=== PATIENT | male | born 1940 | race Caucasian/White ===

== ENCOUNTER → 2016-06-04 | Outpatient (CLI) | payer BC ==
[~2016-06-04] MED LIST: CYAN100020 PO; HYZ/50125 PO; LEVO112T2 PO
--- NOTE | 2016-06-04 15:14 | DIAGNOSTIC IMAGING REPORT ---
CHEST 2 VIEWS ROUTINE CLINICAL HISTORY: R09.89 Chest congestion COMPARISON STUDY: 06/06/2008 FINDINGS: The heart is normal in size. There is mild aortic tortuosity. There is suspected emphysema. There is no focal pulmonary consolidation. There are no pleural effusions. There is no failure.[ IMPRESSION: No active disease in the chest. Electronically signed by: Devon Wasserman M.D. 06/04/2016 3:12 PM Dictated Date/Time: 06/04/2016 3:11 PM
== END | disposition home or self-care (01) ==
LOC: C.RAD1850 14:55
PROVIDERS: ATTEND Internal Medicine Infectious Disease
DX: R09.89 Other specified symptoms and signs involving the circulatory and respiratory systems (principal)

== ENCOUNTER → 2016-06-17 | Outpatient (CLI) | payer BC ==
--- NOTE | 2016-06-17 12:55 | DIAGNOSTIC IMAGING REPORT ---
Venous Doppler right leg VENOUS DOPP LOWER EXT UNILAT CLINICAL HISTORY: R LOWER BEHIND KNEE, R/O DVT pain. Edema. TECHNIQUE: Venous Doppler COMPARISON STUDY: None FINDINGS: Normal study IMPRESSION: Normal study Electronically signed by: Bolivar Knutson M.D. 06/17/2016 12:54 PM Dictated Date/Time: 06/17/2016 12:53 PM
== END | disposition home or self-care (01) ==
LOC: C.ULTR 12:18
PROVIDERS: ATTEND Allergy & Immunology Allergy
DX: M79.661 Pain in right lower leg (principal)

== ENCOUNTER → 2016-06-17 | Outpatient (CLI) | payer BC ==
[2016-06-17 12:40] LABS: BASO % 0.5 %; BASO ABS # 0.03 K/uL (0-0.2); COMPLETE YES; EOS % 2.1 %; HEMATOCRIT 41.9 % (42-52); LYMPH % 20.4 %; LYMPH ABS # 1.29 K/uL (1.2-3.4); MEAN CELL VOLUME 91.9 fL (80-100); MEAN CORPUSCULAR HEMOGLOBIN 31.4 pg (25-34); MEAN CORPUSCULAR HGB CONC 34.1 g/dl (32-36); MEAN PLATELET VOLUME 10.3 fL (7.4-10.4); MONO % 7.4 %; NEUT % 69.6 %; PLATELET COUNT 180 K/uL (130-400); RED BLOOD COUNT 4.56 M/uL (4.7-6.1); WHITE BLOOD COUNT 6.33 K/uL (4.8-10.8)
[2016-06-17 14:36] LABS: ALB/GLOB RATIO 0.9 (0.9-2); ALKALINE PHOSPHATASE 71 U/L (45-117); ALT/SGPT 28 U/L (12-78); AST/SGOT 16 U/L (15-37); BLOOD UREA NITROGEN 18 mg/dl (7-18); CALCIUM 8.5 mg/dl (8.5-10.1); CARBON DIOXIDE 27 mmol/L (21-32); CHLORIDE 106 mmol/L (98-107); GLUCOSE 79 mg/dl (70-99); POTASSIUM 3.8 mmol/L (3.5-5.1); SODIUM 143 mmol/L (136-145)
== END | disposition home or self-care (01) ==
LOC: C.LAB1850 11:56
PROVIDERS: ATTEND Allergy & Immunology Allergy
DX: R53.83 Other fatigue (principal); M79.661 Pain in right lower leg

== ENCOUNTER → 2016-08-30 | Outpatient (CLI) | payer BC | END | disposition home or self-care (01) | LOC: C.RDSM 12:25 | PROVIDERS: ATTEND Physical Medicine & Rehabilitation Sports Medicine | DX: M25.512 Pain in left shoulder (principal) ==

== ENCOUNTER → 2017-07-21 | Outpatient (CLI) | payer BC ==
--- NOTE | 2017-07-21 14:18 | DIAGNOSTIC IMAGING REPORT ---
CHEST 2 VIEWS ROUTINE HISTORY: 76 years-old Male SHORTNESS OF BREATH acute shortness of breath COMPARISON: Chest radiograph 06/04/2016 TECHNIQUE: PA and lateral views of the chest FINDINGS: Cardiomediastinal and hilar silhouettes are within normal limits. Atherosclerosis of the aorta. Mild biapical pleural-parenchymal scarring appears unchanged. No pneumothorax, pleural effusion, focal airspace consolidation or overt pulmonary edema. Degenerative changes are seen within the shoulders and spine. IMPRESSION: No acute process. The above report was generated using voice recognition software. It may contain grammatical, syntax or spelling errors. Electronically signed by: Lorenzo Kenny M.D. 07/21/2017 2:17 PM Dictated Date/Time: 07/21/2017 2:16 PM
[2017-07-21 15:39] LABS: BASO % 0.5 %; BASO ABS # 0.03 K/uL (0-0.2); EOS % 2.7 %; EOS ABS # 0.16 K/uL (0-0.5); IG# 0.01 K/uL (0.00-0.02); LYMPH % 24.7 %; LYMPH ABS # 1.46 K/uL (1.2-3.4); MEAN CELL VOLUME 92.8 fL (80-100); MEAN CORPUSCULAR HEMOGLOBIN 31.7 pg (25-34); MEAN CORPUSCULAR HGB CONC 34.1 g/dl (32-36); MEAN PLATELET VOLUME 10.2 fL (7.4-10.4); MONO % 8.3 %; MONO ABS # 0.49 K/uL (0.11-0.59); NEUT % 63.6 %; NEUT ABS # 3.77 K/uL (1.4-6.5); PLATELET COUNT 199 K/uL (130-400); RED CELL DISTRIBUTION WIDTH CV 13.9 % (11.5-14.5); RED CELL DISTRIBUTION WIDTH SD 47.9 fL (36.4-46.3); WHITE BLOOD COUNT 5.92 K/uL (4.8-10.8)
[2017-07-21 16:10] LABS: ALBUMIN 3.5 gm/dl (3.4-5.0); ALT/SGPT 27 U/L (12-78); BLOOD UREA NITROGEN 17 mg/dl (7-18); CALCIUM 8.2 mg/dl (8.5-10.1); CARBON DIOXIDE 29 mmol/L (21-32); CREATININE 1.02 mg/dl (0.60-1.40); GLUCOSE 81 mg/dl (70-99); SODIUM 136 mmol/L (136-145)
[2017-07-21 16:21] LABS: ALKALINE PHOSPHATASE 86 U/L (45-117); AST/SGOT 20 U/L (15-37); TOTAL PROTEIN 7.7 gm/dl (6.4-8.2)
== END | disposition home or self-care (01) ==
LOC: C.RAD1850 13:55
PROVIDERS: ATTEND Physician Assistant Medical
DX: R06.02 Shortness of breath (principal); R53.83 Other fatigue

== ENCOUNTER → 2017-08-06 | Outpatient (CLI) | payer BC ==
--- NOTE | 2017-08-06 11:14 | DIAGNOSTIC IMAGING REPORT ---
CAROTID DOPPLER NECK ART CLINICAL HISTORY: 77 years-old Male presenting with I10 [id number]. TECHNIQUE: Real-time grayscale and color and spectral Doppler ultrasound imaging of the bilateral carotid arteries was performed. NASCET criteria was used in evaluating this study. COMPARISON: None. FINDINGS: Right: Common carotid: Atherosclerosis. Peak systolic velocity 68 cm/s. Internal carotid artery: Atherosclerosis of the proximal ICA. Peak systolic velocity 46 cm/s. Systolic ratio: 0.7. External carotid artery: Patent. Peak systolic velocity 55 cm/s. Left: Common carotid: Atherosclerosis at the carotid bulb. Peak systolic velocity 55 cm/s. Internal carotid artery: Atherosclerosis of the proximal ICA. Peak systolic velocity 56 cm/s. Systolic ratio: 1.0. External carotid artery: Atherosclerosis. Peak systolic velocity 45 cm/s. Bilateral antegrade flow within the vertebral arteries. Reference ranges: Stenosis measurements are compared to reference velocity parameters. Primary parameters: ICA peak systolic velocity (PSV) < 125 cm/s normal or indicating < 50% stenosis; ICA PSV 125-230 cm/s equivalent to 50-69% stenosis; ICA PSV > 230 cm/s equivalent to greater than or equal to 70% stenosis. Additional parameters: ICA PSV to common carotid artery PSV ratio < 2 normal or < 50% stenosis; 2-4 equates to 50-69% stenosis, > 4 equates to greater than or equal to 70% stenosis. Normal ICA end-diastolic velocity less than 40. Blood pressure Brachial: Right: 139/95 mmHg, Left: 125/86 mmHg. IMPRESSION: Atherosclerosis without hemodynamically significant stenosis seen within the carotid arteries. Electronically signed by: Irving Germain M.D. 08/06/2017 11:12 AM Dictated Date/Time: 08/06/2017 11:11 AM
== END | disposition home or self-care (01) ==
LOC: C.ULTR 10:29
PROVIDERS: ATTEND Physician Assistant Medical
DX: I10 Essential (primary) hypertension (principal); R42 Dizziness and giddiness

== ENCOUNTER → 2017-08-19 | Outpatient (CLI) | payer BC | END | disposition home or self-care (01) | LOC: C.LAB1850 12:57 | PROVIDERS: ATTEND Internal Medicine Pulmonary Disease | DX: R53.83 Other fatigue (principal); R42 Dizziness and giddiness ==

== ENCOUNTER 2022-03-20 05:57 | Inpatient (IN) ==
--- NOTE | 2022-03-15 10:23 | PAT Medication Instructions ---
Medication Instructions Date of Service March 15, 2022 Home Medications Medication Instructions Recorded losartan 50 mg tablet 50 mg PO QAM #30 tabs 01/18/22 multivitamin 1 tab PO QAM levothyroxine 125 mcg tablet 125 mcg PO QAM losartan 50 mg tablet 50 mg PO QAM DO NOT take the morning of surgery multivitamin 1 tab PO QAM losartan 50 mg tablet 50 mg PO QAM Take morning of surgery With a small sip of water, OTHERWISE NOTHING TO EAT OR DRINK AFTER MIDNIGHT: levothyroxine 125 mcg tablet 125 mcg PO QAM Other Notes If you have any questions please call us at [phone] or [phone] or [phone] or [phone]
--- NOTE | 2022-03-18 13:09 | Anesthesiology Consultation ---
Date of Service March 18, 2022 Assessment & Plan (1) Encounter for pre-operative examination: - PCP office visit 02/11/22 [place]: "...81-year-old male with multiple medical problems including hypertension, mild ALFONSO, hypothyroidism, depression, BPH, previous history of non-Hodgkin's lymphoma, psoriasis with arthritis and dyspepsia/bloating. His GI workup was relatively unremarkable although his CT of the abdomen and pelvis did show an enlarging aortic aneurysm which will be fixed by vascular surgery. He is recovered from Haemophilus influenzae pneumonia. His appetite has improved and he is gaining weight again..." Chart Review Chart Review: Acceptable Risk for Surgery and Patient seen in Pre Admission Testing Teaching & Discussion Pre-Anesthesia Teaching/Discussion Notes: Instructed NPO after midnight before surgery, except medications with 15 cc of water. Medication instructions provided according to the PAT guidelines. History Surgery Operation Date: 03/20/22 10:40 Proposed Procedures p Percutaneous Endovascular Abdominal Aortic Aneurysm Repair - Juwan Robertson MD Height/Weight Height: 6 ft Weight: 69.853 kg Allergies Allergy/AdvReac Type Severity Reaction Status Date / Time Morpholine Analogues Allergy Severe Difficulty Verified 03/13/22 08:02 Breathing ciprofloxacin [From Cipro] AdvReac Intermediate Vomiting Verified 03/13/22 08:02 bee sting Allergy Severe Anaphylaxis Uncoded 03/13/22 08:02 Medications Home Medications Medication Instructions Recorded Confirmed Last Taken multivitamin 1 tab PO QAM 03/26/21 03/13/22 11/10/21 levothyroxine 125 mcg tablet 125 mcg PO QAM 11/08/21 03/13/22 11/12/21 09:00 losartan 50 mg tablet 50 mg PO QAM #30 tabs 01/18/22 03/13/22 Unknown calcipotriene 0.005 % topical cream applic topical 03/18/22 Unknown clobetasol 0.05 % topical cream topical 03/18/22 Unknown clobetasol 0.05 % topical cream topical 03/18/22 Unknown Additional Notes: Pt advised to stop all gels, lotions and creams 24 hours prior to surgery. He verbalized understanding and agreement, denied questions or concerns. Past Medical History Medical History AAA (abdominal aortic aneurysm) 5.2 x 5.1 cm infrarenal AAA BPH (benign prostatic hyperplasia) Constipation Esophageal reflux History of anesthesia reaction inability to void s/p shoulder surgery " i almost because my bladder almost burst" treated post op in the emergency room with juarez catheter for 24 hours. History of diverticulitis History of non-Hodgkin's lymphoma dx'd 2003 - chemotherapy History of sleep apnea reports resolved with weight loss HTN (hypertension) Hypothyroidism Pneumonia per PCP (per patient, CXR was negative) 12/2021 treated with abx. no current problems. Quadriceps tendon rupture hx bilateral Weight loss, unintentional recent EGD and Colonoscopy -- continued monitoring his weightloss and following with PCP Patient denies h/o stroke, seizures, heart attack, heart failure, DM, blood clots or blood transfusions. Exercise / Class Metabolic Activity II 4-5 Yardwork/Stairs/Walk up hill (denies CP or SOB with 1 FOS) Past Family History Family History Other Cancer No family history of adverse response to anesthesia Past Surgical History Surgical History (Updated 03/18/22 @ 13:12 by Chetna Flanagan PA-C) H/O colonoscopy History of arthroscopy of left shoulder post-op urinary retention requiring emergent catheterization History of arthroscopy of right shoulder History of bowel resection r/t diverticulosis History of esophagogastroduodenoscopy (EGD) History of eye surgery right eye removal History of knee surgery Repair of right and left quadricep repair History of partial colectomy Past Anesthesia History No Family Hx of Anesthesia Complications and Other (post-op urinary retention requiring emergent catheterization) History of PONV No Hx of PONV and No Hx of Motion Sickness Social History Smoking Status: Current every day smoker (advised) tobacco type: cigars Do You Dip or Chew Tobacco: No Hx Alcohol Use: Yes Alcohol type: beer alcohol intake frequency: a few times a week Hx Substance Use: No substance use type: does not use Review of Systems Patient denies chest pain, shortness of breath, dyspnea on exertion, fever, chills, cough, wheezing, or palpitations. Physical Exam Vital Signs Vitals BP 152/95 manual P 70 TEMP 97.7 SP02 97% on RA RESP 18 Physical Full cervical extension range of motion without pain TMD 3.5 finger breadths Mallampati Score 3 Dentition: full upper denture, partial lower; denies chipped or loose teeth Lungs: normal respiratory effort. Clear throughout to auscultation, no adventitious breath sounds Cardiac: regular rate and rhythm, no murmurs noted Carotid arteries: negative bruit bilat Lab Results Anesthesia Preop Results Results Anesthesia Widget: WBC 5.22 K/ul (4.8-10.8) 03/18/22 Hgb 13.6 g/dl (14.0-18.0) L 03/18/22 Hct 39.3 % (40.1-51.0) L 03/18/22 Plt 227 K/uL (130-400) 03/18/22 Na 140 mmol/L (136-145) 03/18/22 K 4.1 mmol/L (3.5-5.1) 03/18/22 Cl 106 mmol/L (98-107) 03/18/22 CO2 31 mmol/L (21-32) 03/18/22 BUN 18 mg/dl (6-23) 03/18/22 Creat 0.95 mg/dl (0.6-1.4) 03/18/22 Glucose Level 83 mg/dl (70-99(Fasting)) 03/18/22 PT 10.8 Seconds (9.0-12.0) 03/18/22 PTT 27.1 Seconds (21.0-31.0) 03/18/22 INR 1.0 (0.9-1.1) 03/18/22 Blood Type A Negative 03/18/22 Antibody Screen NEGATIVE 03/18/22 Testing Electrocardiogram Date: 03/18/22 Sinus bradycardia, rate 59 bpm Left anterior fascicular block Chest X-Ray Date: 03/18/22 No focal lung consolidations to suggest a pneumonia. No evidence for pulmonary e tabitha. There is a punctate calcified granuloma within the right upper lobe, unchanged. The heart is normal in size. Mildly tortuous thoracic aorta again noted. IMPRESSION: No significant change compared to the prior study. No acute process. Other Testing Chest, abdomen pelvis CTA 02/25/22 Cardiomegaly. There is no pericardial effusion. Tortuosity of the descending thoracic aorta. Fusiform aneurysmal dilation of the infrarenal abdominal aorta measures up to 5.2 x 5.1 cm, unchanged from the December 18, 2021 exam. Aneurysm extends for a craniocaudal length of approximately 9.3 cm. 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 Fusiform dilation is also noted involving the bilateral external iliac arteries. There is approximately 50% luminal narrowing involving the mid aspect of the celiac trunk on image 119 series 3 with poststenotic dilation measuring up to 1.4 cm. The superior mesenteric artery is patent. There is diminished flow throughout the majority of the inferior mesenteric artery on the arterial phase with normalized flow on the portal kori ous imaging. The bilateral renal arteries are patent. There is an accessory right renal artery feeding the inferior pole which demonstrates at least mild stenosis at its origin. Clear lung bases. No pneumatosis or pneumoperitoneum. The spleen, moderately trophic pancreas, gallbladder and adrenal glands appear unremarkable. The liver is within normal limits. There are a few subcentimeter hepatic cysts noted. There is patency of the hepatic and portal veins. There are a few cysts of the left kidney which measure up to 2.7 cm. 1.3 cm right renal cyst. No urolith or obstructive uropathy. Marked prostamegaly. Partial distention of the urinary bladder with circumferential wall thickening and perivesicular stranding. There is no lymphadenopathy. Mild nonspecific distal esophageal wall thickening. There is no bowel obstruction or bowel wall thickening. Colonic diverticulosis without acute diverticulitis. Moderate colonic fecal retention. Normal appendix. There is no ascites or mesenteric inflammation. Unremarkable soft tissues. Degenerative changes of the spine, pelvis and hips. L3 vertebral body hemangioma. IMPRESSION: 1. 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 2. No dissection or evidence of aneurysm rupture. 3. Diffusely diminished flow within the inferior mesenteric artery on the arterial phase with normalization of flow on the portal venous imaging. 4. No acute intra-abdominal or intrapelvic abnormality. 5. Additional findings as above. COVID-19 Risk Screen Screening Information COVID-19 Screen Date: 03/18/22 Exposure 21 Days Family/Household +COVID Last 21 Days: No Exposure 10 Days Any COVID Exposure Last 10 Days: No Symptoms Last 10 Days Experienced COVID Sx Last 10 Days: No + COVID 0-90 Days COVID + in Last 0-90 Days: No
[2022-03-20] MEDS ORDERED: ceFAZolin 2000MG 2,000 MG/15 ML SYR IV SCH (06:00)
[2022-03-20] MEDS ORDERED: LACTATED RINGER'S 1,000 ML IV SCH (06:00)
[2022-03-20] MEDS ORDERED: SUGAMMADEX SODIUM 200 MG/2 ML VIAL IV ONE (06:46)
[2022-03-20] MEDS ORDERED: fentaNYL citrate 100 MCG/2 ML VIAL ONE (07:03)
[2022-03-20] MEDS ORDERED: MIDAZOLAM HCL 1 MG/ML 2ML VIAL ONE (07:03)
--- NOTE | 2022-03-20 07:28 | History & Physical Report ---
Date of Service March 20, 2022 Assessment & Plan (1) Abdominal aortic aneurysm: Plan: We discussed the options of open versus endograft treatment. We elected to choose the endograft therapy for the repair of the abdominal aortic aneurysm. We did go over the possibility of having to cover the accessory renal and possibly having a small infarction of the inferior pole of the kidney. We will try to fix this without covering the accessory renal. We may have to use Endo anchors if there is a question of graft migration. If the neck is shorter than I would like then we possibly may cover the inferior accessory renal artery of the kidney. Patient is understands the risks options benefits and agrees to go ahead with this approach. We will keep you informed as to his results. History of Present Illness Chief Complaint: AAA Primary Care Provider: Beck Pugh MD Mr. Suarez is an elderly male who presents to Dr. Robertson's vascular surgery clinic today as a new patient in consultation for an incidental finding of an abdominal aortic aneurysm on recent imaging. Patient states that he has been suffering from intermittent left lower quadrant abdominal pain, and the site of his previous partial colectomy, and sought medical attention. He underwent a CT evaluation which demonstrated an infrarenal abdominal aortic aneurysm. He states he was never told that he had 1 prior to this, although the radiologist did have a comparison imaging of a smaller AAA in 2014 at 3 cm. Patient states overall he is feeling well. He denies headache, fever, chest pain, shortness of breath, abdominal pain, nausea, vomiting, rest pain, claudication, nonhealing wounds or ulcers, other concerns. 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 Allergies Allergy/AdvReac Type Severity Reaction Status Date / Time Morpholine Analogues Allergy Severe Difficulty Verified 03/20/22 06:16 Breathing ciprofloxacin [From Cipro] AdvReac Intermediate Vomiting Verified 03/20/22 06:16 bee sting Allergy Severe Anaphylaxis Uncoded 03/20/22 06:16 Home Medications Medication Instructions Recorded Confirmed Type multivitamin 1 tab PO QAM 03/26/21 03/20/22 History levothyroxine 125 mcg tablet 125 mcg PO QAM 11/08/21 03/20/22 History losartan 50 mg tablet 50 mg PO QAM #30 tabs 01/18/22 03/20/22 Rx calcipotriene 0.005 % topical cream 1 applic topical DAILY PRN Rash 03/18/22 03/20/22 History clobetasol 0.05 % topical cream 1 applic topical DAILY PRN Rash 03/18/22 03/20/22 History Past Med/Surg History Medical History AAA (abdominal aortic aneurysm) 5.2 x 5.1 cm infrarenal AAA BPH (benign prostatic hyperplasia) Constipation Esophageal reflux History of anesthesia reaction inability to void s/p shoulder surgery " i almost because my bladder almost burst" treated post op in the emergency room with juarez catheter for 24 hours. History of diverticulitis History of non-Hodgkin's lymphoma dx'd 2003 - chemotherapy History of sleep apnea reports resolved with weight loss HTN (hypertension) Hypothyroidism Pneumonia per PCP (per patient, CXR was negative) 12/2021 treated with abx. no current problems. Quadriceps tendon rupture hx bilateral Weight loss, unintentional recent EGD and Colonoscopy -- continued monitoring his weightloss and following with PCP Surgical History H/O colonoscopy History of arthroscopy of left shoulder post-op urinary retention requiring emergent catheterization History of arthroscopy of right shoulder History of bowel resection r/t diverticulosis History of esophagogastroduodenoscopy (EGD) History of eye surgery right eye removal History of knee surgery Repair of right and left quadricep repair History of partial colectomy Family History Other Cancer No family history of adverse response to anesthesia Social History Smoking Status: Current every day smoker Second Hand Exposure: No; Do You Dip or Chew Tobacco: No; Tobacco Cessation Education Requested by Patient: No Hx Alcohol Use: Yes Alcohol type: beer Hx Substance Use: No Preferred Language: Lao Communication Ability: Effective Audio Production Instructor Required: No Beliefs That Will Affect Care: None marital status: Current Living Situation: Spouse current occupational status: retired Other Information That Helps Us Care for You: No Feels Safe at Home: Yes Safety Concerns: Feels Safe At This Time Assistive Devices: Denture - Upper and Denture - Lower Review of Systems All systems reviewed & are unremarkable except as noted in HPI & below Physical Exam Physical Exam: Constitutional: In general patient is a thin but healthy appearing well-nourished well-developed elderly male no distress. He is alert and oriented without any focal deficits. His head is normocephalic atraumatic. His trachea is midline. His carotids do not demonstrate a bruit. His heart is regular, his lungs are clear throughout. His abdomen is soft and nontender with an easily palpable left-sided pulsatile mass measuring about 5 cm in diameter. He has easily palpable femoral pulses. His radial and brachial pulses are +3. His lower extremity distal pulses are +2. He has brisk capillary refill and no sign of distal ischemia. There is no edema. Results & Data ([facility]) Vital Signs (Past 12 Hours) Vital Signs Temp Pulse Resp BP Pulse Ox O2 Del Method 03/20/22 06:21 36.8 C 50 L 18 162/99 H 97 Room Air
[2022-03-20] MEDS ORDERED: LABETALOL HCL IV 5 MG/ML 20ML IV PRN (07:41)
[2022-03-20] MEDS ORDERED: ATROPINE SULFATE 0.1 MG/ML 10ML SYR IV PRN (07:41)
[2022-03-20] MEDS ORDERED: ONDANSETRON INJ 2 MG/ML 2 ML VIAL IV PRN ×2 (07:41→10:59)
[2022-03-20] MEDS ORDERED: PROMETHAZINE HCL 6.25 MG in SODIUM CHLORIDE 0.9% 50 ML IV PRN (07:41)
[2022-03-20] MEDS ORDERED: fentaNYL citrate 100 MCG/2 ML VIAL IV PRN (07:41)
[2022-03-20] MEDS ORDERED: PROPOFOL IV EMULSION 10 MG/ML 20 ML VIAL IV ONE (08:26)
[2022-03-20] MEDS ORDERED: ePHEDrine sulfate 50 MG/ML SYR ONE (08:26)
[2022-03-20] MEDS ORDERED: LARYING-O-JET KIT (LTA) ONE (08:26)
[2022-03-20] MEDS ORDERED: DEXAMETHASONE SOD INJ 4 MG/ML VIAL ONE (08:26)
[2022-03-20] MEDS ORDERED: LIDOCAINE 2% MPF LOCAL 5 ML VIAL INFIL ONE (08:26)
[2022-03-20] MEDS ORDERED: HEPARIN SOD (PORCINE) 1000 UNIT/ML ONE (08:26)
[2022-03-20] MEDS ORDERED: ONDANSETRON INJ 2 MG/ML 2 ML VIAL ONE (08:26)
[2022-03-20] MEDS ORDERED: LABETALOL HCL IV 5 MG/ML 20ML IV ONE (08:26)
[2022-03-20] MEDS ORDERED: NEOSTIGMINE METHYLSULFATE 1 MG/ML 10ML VIAL ONE (08:26)
[2022-03-20] MEDS ORDERED: GLYCOPYRROLATE 0.2 MG/ML VIAL ONE (08:26)
[2022-03-20] MEDS ORDERED: ROCURONIUM BROMIDE 10 MG/ML 5 ML VIAL IV ONE ×3 (08:26→08:32)
[2022-03-20] MEDS ORDERED: PHENYLEPHRINE HCL 10 MG/ML VIAL ONE (08:52)
[2022-03-20] MEDS ORDERED: VISIPAQUE IV PRN (09:59)
--- NOTE | 2022-03-20 10:18 | Procedure Note ---
Angiogram Post Procedure Fluoroscopy Time (minutes): 20 Radiation (mGy): 307 Contrast: 100 Post Operative Report Pre & Post Diagnosis Operation Date: 03/20/22 08:00 Pre-Op Diagnosis: Abdominal Aortic Aneurysm Post-Op Diagnosis: Abdominal Aortic Aneurysm I identified the patient and participated in the time-out.: Yes Procedure Operation Date: 03/20/22 08:00 Actual Procedures p Percutaneous Endovascular Aortic Aneurysm Repair, Right iliac branch device, U ltrasound Localization of Bilateral Femoral Arteries, Left Iliac Extension, Mechanical Closure of Bilateral Femoral Arteries(Bilateral) - Juwan Robertson MD Surgeon Juwan Robertson MD Certified Welding Inspector Keyla,PAC Estimated Blood Loss 30 Findings Consistent with Post-Op Diagnosis Specimens none Anesthesia Type General Complications none Disposition Accompanied Patient To Recovery: No Disposition: Recovery Room Indications This is a 81-year-old gentleman who has a large abdominal attic aneurysm which has increased in size. He was a candidate for endovascular repair. I have discussed the risks options and benefits of the procedure with the patien t. The patient understands the risks options and benefits and agrees to the procedure. Description of Procedure Patient was brought to the OR and placed in supine position. Patient was intubated and general anesthesia was accomplished and an A-line was placed. Corrigan was placed. A safety timeout was performed to identify patient's name, date of and the correct procedure. Abdomen and groins were prepped and draped in sterile fashion. Ultrasound guided percutaneous access of the right groin was performed. The left common femoral artery was patent on ultrasound. The left common femoral artery was punctured. A J-wire was advanced through the needle, the needle was then removed and a skin ibrahima was performed using 11 blade. A 5 Danish sheath was inserted. 2 Perclose devices were deployed at 10 and 2:00 positions. The sutures were secured with Steri-Strips. An 8 Danish was then placed in the right groin. We turned our attention to the right side and we similarly accessed the left common femoral artery. Same steps were applied and an 8 Danish sheath was placed in the right groin. Patient was heparinized with 8000 of IV heparin. Through the right groin, we advanced a soft Glidewire followed by a Kumpe catheter. The wire then was exchanged for a stiff Leelee wire. Similarly, we placed a Leelee wire through the left groin through Kumpe catheter. The 8 Danish sheath in the left groin was exchanged to a 16 Danish sheath dry seal. The sheath in the right groin was exchanged and upsized to an 18 Danish dry seal. An 035 Glidewire was inserted through the sheath in the right side. Was passed up into the aorta. A snare was inserted through the left groin sheath. 035 wire was snared and brought out through the left groin. Through the right side we inserted a 23 x 14-1/2 x 10 TJ device. Hand-injection was then done to kevin the internal iliac artery origin. Once this was marked the graft was deployed opening the gate just above the internal iliac artery origin on the right side. We then inserted a 12 Danish dry seal through the left side over the wire. This was passed down to the end of the gate. A Kumpe catheter was reinserted over the wire and the right internal iliac was then cannulated with an 035 wire and the Kumpe catheter. The Kumpe was advanced into the internal iliac artery on the right side. This wire was then exchanged to a stiffened Glidewire. We then inserted a 16 x 14-1/2 x 7 cm internal iliac component. This was passed into the internal iliac artery. There is a good overlap distance. The device was deployed without difficulty. Once this was done we used a 14 x 2 balloon to expand the shaft of the graft and to anchor the internal iliac artery component. The rest of the limb was then deployed into the right external iliac artery. The 14 mm balloon was then inserted to the right groin and this limb was also approximated to the arterial wall with a 14 balloon. The 12 Danish sheath was removed. The 035 wire was then reinserted through the left side. Kumpe catheter was inserted and the wire was exchanged to the Coffman wire. A 16 Danish sheath was then upsized to an 18 Danish dry seal. At that point we inserted a 13 x 14 and half by 13 C3 main body through the left groin. Pigtail was inserted through the right. Aortography was performed. The level of the renal arteries were marked on the screen. This showed patency of both renal arteries and a acceptable neck for deployment of the graft. The device was positioned just below the renal arteries. The shaft of the graft was then deployed. An aortogram was performed. Both renal arteries were visualized just above the top of the deployed graft. Aortogram confirmed good location of the proximal end of the graft. The hooks were then deployed. Cannulation of the gate was then accomplished using an 035 glidewire and a Kumpke catheter. The wire spun easily in the neck of the graft. The 035 Glidewire was removed and a Leelee wire was reinserted. A marker pigtail was then inserted over the Coffman wire. The marker pig was used to measure distance between the flow divider of the main g raft and the flow divider of the branch device. We then remove the pigtail. We then inserted an 16 mm x 27 x 10 contralateral limb bridge component. The bridge component was then deployed. We then deployed the rest of the ipsilateral limb on the left side. We pulled the sheath down into the external iliac artery. Hand-injection was then done to kevin the internal iliac artery origin. It was decided to use a 16 x 27 x 10 contralateral limb as an extension on the left side. This was inserted and deployed with the distal end of the graft opening just shy of the internal iliac artery origin. The Q50 balloon was then inserted through the left sheath. The proximal attachment site, the gate and the distal attachment site were ballooned with the Q50 balloon. The balloon was then removed. The balloon was then inserted through the right side 18 Danish sheath and then the distal attachment site of the right limb and the overlap between the bridge device and the iliac branch device was then balloon. The balloon was then removed. The pigtail was then inserted through the left side to above the renal arteries. A final arteriogram was then performed which showed no evidence of a type I endoleak. Graft showed no evidence of narrowing throughout. An 035 Glidewire was then reinserted into the pigtail and the pigtail removed. The 18 Danish sheath was then pulled from the left groin and the 2 Pro-glide devices were then tied. Good seal was seen with no bleeding noted. The right groin sheath was then also pulled. The 2 pro glides on the right side were then securely tied. No evidence of bleeding was seen on the right side either. Sterile dressings were applied to the wounds.The patient left the operation room in satisfactory condition and tolerated the procedure well. All needle and sponge counts were correct at the end of the procedure. Lizett Hartley Pac assisted due to lack of resident availability and was necessary for positioning, draping, retraction, wound closure deep layers, subcutaneous tissue, and skin closure and was necessary for assisting with the case. I attest to the content of the Intraoperative Record and any orders documented therein. Any exceptions are noted below.
[2022-03-20 10:49] LABS: Hematocrit (blood only) 34.9 % (40.1-51.0); Hemoglobin 11.7 g/dl (14.0-18.0)
[2022-03-20] MEDS ORDERED: D5W AND 1/2NSS 1,000 ML IV SCH (10:59)
[2022-03-20] MEDS ORDERED: MoRPHine SULFATE 4 MG/ML 1 ML CARP\\VIAL IV PRN (10:59)
--- NOTE | 2022-03-20 11:09 | Anesthesiology Progress Note ---
Date of Service March 20, 2022 Anesthesia Post Procedure Vital Signs Vital Signs: Temp Pulse Pulse Resp BP BP Pulse Ox 03/20/22 10:30 54 L 12 155/80 H 152/95 H 100 03/20/22 10:20 52 L 12 152/78 H 135/79 100 03/20/22 10:40 36.5 C 54 L 18 164/82 H 152/93 H 97 03/20/22 10:13 36.3 C L 55 L 19 164/82 H 153/92 H 100 03/20/22 06:21 36.8 C 50 L 18 162/99 H 97 O2 Del Method O2 Flow Rate 03/20/22 10:30 Oxymask 2 03/20/22 10:20 Oxymask 6 03/20/22 10:40 Room Air 03/20/22 10:13 Oxymask 6 03/20/22 06:21 Room Air Pain Intensity Bilateral Groin: Pain Intensity: 4 Transfer of Care Handoff Completed per policy Notes Mental Status: alert / awake / arousable Patient Amnestic to Procedure: Yes Nausea / Vomiting: adequately controlled Pain: adequately controlled Airway Patency, RR, SpO2: stable & adequate BP & HR: stable & adequate Hydration State: stable & adequate Anesthetic Complications: no major complications apparent
--- NOTE | 2022-03-20 11:32 | Critical Care Consultation ---
Date of Consultation March 20, 2022 Assessment & Plan (1) Obstructive sleep apnea: (2) Abdominal aortic aneurysm: (3) Hypertension: Plan Impression: 81-year-old male status post endovascular repair of an aortic aneurysm in the ICU for observation postoperatively. He is doing well clinically. Recommendations: 1. Abdominal aortic aneurysm: Status post endovascular repair. Management per vascular surgery. Continue neurovascular checks. His access sites appear clean dry and intact currently. 2. Hypertension: Continue outpatient losartan. As needed labetalol per vascular surgery guidelines. Anticipate we should be able to get rid of the arterial line and Juarez catheter in relatively short order 3. Hypothyroidism: Continue Synthroid. 4. Sleep disordered breathing: Mild per report. Would follow clinically at this point time. If the patient should have cyclical oxygen desaturations or witnessed apnea, low threshold for application of empiric positive airway pressure. Otherwise he can follow-up with Dr. miller in the outpatient setting. 5. The patient's other medical issues have been well addressed by the vascular surgery service. Will continue to follow during the ICU course. Feel free to contact us with questions or concerns History of Present Illness Attending Physician: Juwan Robertson MD History of Present Illness Asked by vascular surgery to assist in evaluation management this patient postoperatively status post endovascular repair of abdominal aortic aneurysm. History is obtained from discussion with the patient as well as review of electronic medical record. Patient is a 81-year-old male with a history of non-Hodgkin's lymphoma hypertension hypothyroidism who underwent a CT for some lower abdominal pain. That he was found to have a 5 cm aneurysm. Previously had been 3 cm. He was referred to Dr. Robertson. Discussions were had regarding repair strategies and the patient elected to undergo endovascular repair which was accomplished today. Patient returns to the ICU hemodynamically stable and doing well. He has no complaints currently. Allergies Allergy/AdvReac Type Severity Reaction Status Date / Time Morpholine Analogues Allergy Severe Difficulty Verified 03/20/22 06:16 Breathing ciprofloxacin [From Cipro] AdvReac Intermediate Vomiting Verified 03/20/22 06:16 bee sting Allergy Severe Anaphylaxis Uncoded 03/20/22 06:16 Home Medications Medication Instructions Recorded Confirmed Type multivitamin 1 tab PO QAM 03/26/21 03/20/22 History levothyroxine 125 mcg tablet 125 mcg PO QAM 11/08/21 03/20/22 History losartan 50 mg tablet 50 mg PO QAM #30 tabs 01/18/22 03/20/22 Rx calcipotriene 0.005 % topical cream 1 applic topical DAILY PRN Rash 03/18/22 03/20/22 History clobetasol 0.05 % topical cream 1 applic topical DAILY PRN Rash 03/18/22 03/20/22 History Patient History Medical History AAA (abdominal aortic aneurysm) 5.2 x 5.1 cm infrarenal AAA BPH (benign prostatic hyperplasia) Constipation Esophageal reflux History of anesthesia reaction inability to void s/p shoulder surgery " i almost because my bladder almost burst" treated post op in the emergency room with juarez catheter for 24 hours. History of diverticulitis History of non-Hodgkin's lymphoma dx'd 2003 - chemotherapy History of sleep apnea reports resolved with weight loss HTN (hypertension) Hypothyroidism Pneumonia per PCP (per patient, CXR was negative) 12/2021 treated with abx. no current problems. Quadriceps tendon rupture hx bilateral Weight loss, unintentional recent EGD and Colonoscopy -- continued monitoring his weightloss and following with PCP Surgical History H/O colonoscopy History of arthroscopy of left shoulder post-op urinary retention requiring emergent catheterization History of arthroscopy of right shoulder History of bowel resection r/t diverticulosis History of esophagogastroduodenoscopy (EGD) History of eye surgery right eye removal History of knee surgery Repair of right and left quadricep repair History of partial colectomy Family History Other Cancer No family history of adverse response to anesthesia Social History Smoking Status: Current every day smoker Second Hand Exposure: No; Do You Dip or Chew Tobacco: No; Tobacco Cessation Education Requested by Patient: No Hx Alcohol Use: Yes Alcohol type: beer Hx Substance Use: No Preferred Language: Setswana Communication Ability: Effective Drafter Geophysical Required: No Beliefs That Will Affect Care: None marital status: Current Living Situation: Spouse current occupational status: retired Other Information That Helps Us Care for You: No Feels Safe at Home: Yes Safety Concerns: Feels Safe At This Time Assistive Devices: Denture - Upper and Denture - Lower Review of Systems Review of Systems: All systems reviewed & are unremarkable except as noted in Subjective Physical Exam Constitutional: WD/WN, vitals as above ENMT: Right eye patched Neck: trachea midline, no thyromegaly Respiratory: normal respiratory effort, lungs clear to auscultation Cardiovascular: RRR, no murmur, no edema Gastrointestinal (Abdomen): normal bowel sounds, soft, nontender, no hepatosplenomegaly Musculoskeletal: Extremities: extremities normal to inspection Skin: no rashes, warm and dry Neurologic: Nonfocal exam Lymphatic: no cervical lymphadenopathy Results & Data Results & Data ([facility]) Vital Signs (Past 12 Hours) Vital Signs Temp Pulse Pulse Resp BP BP Pulse Ox 03/20/22 10:30 54 L 12 155/80 H 152/95 H 100 03/20/22 10:20 52 L 12 152/78 H 135/79 100 03/20/22 10:40 36.5 C 54 L 18 164/82 H 152/93 H 97 03/20/22 10:13 36.3 C L 55 L 19 164/82 H 153/92 H 100 03/20/22 06:21 36.8 C 50 L 18 162/99 H 97 O2 Del Method O2 Flow Rate 03/20/22 10:30 Oxymask 2 03/20/22 10:20 Oxymask 6 03/20/22 10:40 Room Air 03/20/22 10:13 Oxymask 6 03/20/22 06:21 Room Air Critical Care Results & Data Vital Signs (Past 12 Hours) Vital Signs Temp Pulse Pulse Pulse Resp BP BP 03/20/22 11:15 53 L 14 141/90 H 03/20/22 11:04 53 L 12 155/94 H 03/20/22 11:04 36.6 C 03/20/22 10:30 54 L 12 155/80 H 03/20/22 10:20 52 L 12 152/78 H 03/20/22 10:40 36.5 C 54 L 18 164/82 H 03/20/22 10:13 36.3 C L 55 L 19 164/82 H 03/20/22 06:21 36.8 C 50 L 18 BP Pulse Ox O2 Del Method O2 Flow Rate 03/20/22 11:15 95 Room Air 03/20/22 11:04 95 Room Air 03/20/22 11:04 03/20/22 10:30 152/95 H 100 Oxymask 2 03/20/22 10:20 135/79 100 Oxymask 6 03/20/22 10:40 152/93 H 97 Room Air 03/20/22 10:13 153/92 H 100 Oxymask 6 03/20/22 06:21 162/99 H 97 Room Air Lab & Micro Results (Past 24 Hours) Hgb 11.7 g/dl (14.0-18.0) L 03/20/22 Hct 34.9 % (40.1-51.0) L 03/20/22 No Data to Display No Data to Display I & O Totals 24 Hours 03/19/22 03/20/22 03/21/22 06:59 06:59 06:59 Intake Total 1700 / 1700 Output Total 480 / 480 Balance 1220 / 1220 Cumulative 03/12/22 09:09 thru 03/20/22 10:45 Intake Total 1700 Output Total 480 Balance 1220 RT Ventilator Mngmt (Last Documented) Ventilator Ordered Settings Respiratory Rate 14 03/20/22 11:15 Ventilator - PT Measurements Respiratory Rate 14 Coding Level of Care Code 90151 Inpt Consult Level 3 Diagnoses Obstructive sleep apnea G47.33 Abdominal aortic aneurysm I71.4 Hypertension I10
[2022-03-20] MEDS ORDERED: PNEUMOCOCCAL POLYSACCHARIDES 25 MCG/0.5 ML VIAL/SYR IM ONE (12:26)
[2022-03-20] MEDS: oxyCODONE/ACETAMINOPHEN 5mg/325mg TAB PO PRN ×2 (13:12→21:55)
[2022-03-20] MEDS: ceFAZolin 2000MG 2,000 MG/15 ML SYR IV SCH ×2 (15:33→22:15)
[2022-03-21 04:49] LABS: Basophils # (auto) 0.01 K/uL (0-0.2); Basophils % (auto) 0.1 %; Hematocrit (blood only) 33.6 % (40.1-51.0); Hemoglobin 11.3 g/dl (14.0-18.0); Immature Granulocytes # (auto) 0.02 K/uL (0.00-0.02); Immature Granulocytes % (auto) 0.2 %; Lymphocytes # (auto) 1.04 K/uL (1.2-3.4); Lymphocytes % (auto) 11.5 %; Mean Corpuscular Hemoglobin 31.3 pg (25.0-34.0); Mean Corpuscular Hgb Conc 33.6 g/dL (32.0-36.0); Mean Corpuscular Volume 93.1 fL (80.0-100.0); Mean Platelet Volume 9.6 fL (9.4-12.4); Monocytes # (auto) 0.71 K/uL (0.24-0.82); Monocytes % (auto) 7.9 %; Neutrophils # (auto) 7.26 K/uL (1.4-6.5); Neutrophils % (auto) 80.3 %; Platelet Count 167 K/uL (130-400); RDW Standard Deviation 50.7 fL (36.4-46.3); Red Blood Count 3.61 M/uL (4.63-6.08); White Blood Count 9.04 K/ul (4.8-10.8)
[2022-03-21 05:18] LABS: BUN Creatinine Ratio 19.3 (10-20); Calcium 8.1 mg/dl (8.5-10.1); Creatinine Clr Calc Pharmacy 72.4 ml/min; Est GFR (African American) 94.7 ml/min; Est GFR (Non-African American) 81.7 ml/min; Potassium 3.5 mmol/L (3.5-5.1)
[2022-03-21] MEDS ORDERED: LEVOTHYROXINE SODIUM 125 MCG TABLET PO SCH (06:30)
[2022-03-21] MEDS ORDERED: LOSARTAN POTASSIUM 50 MG TAB PO SCH (09:00)
[2022-03-21] MEDS ORDERED: MULTIVITAMIN TAB PO SCH (09:00)
--- NOTE | 2022-03-21 09:06 | Critical Care Progress Note ---
Date of Service March 21, 2022 Assessment & Plan (1) Obstructive sleep apnea: (2) Abdominal aortic aneurysm: (3) Hypertension: Plan Impression: 81-year-old male status post endovascular repair of an aortic aneurysm 03/20/2022. He is done well overnight. Recommendations: 1. Abdominal aortic aneurysm: Status post endovascular repair. Management per vascular surgery. Continue neurovascular checks. His access sites appear clean dry and intact currently. 2. Hypertension: Continue outpatient losartan. 3. Hypothyroidism: Continue Synthroid. 4. Sleep disordered breathing: Mild per report. Would follow clinically at this point time. If the patient should have cyclical oxygen desaturations or witnessed apnea, low threshold for application of empiric positive airway pressure. Otherwise he can follow-up with Dr. miller in the outpatient setting. 5. The patient's other medical issues have been well addressed by the vascular surgery service. Disposition per vascular surgery. His critical care issues appear resolved. We will sign off. Feel free to contact us if we can be of additional assistance Admission and Anticipated Discharge Date Admission Date: March 20, 2022 Subjective Patient seen and examined. EMR reviewed. Patient is awake and alert and conversant. He tolerated some breakfast this morning. No chest pain or palpitation. No abdominal pain. No nausea or vomiting. He is much more comfortable now that his Corrigan catheters been removed. Arterial line has been removed. He is hemodynamically stable. He feels well and is asking to go home Review of Systems Review of Systems: All systems reviewed & are unremarkable except as noted in Subjective Physical Exam Constitutional: WD/WN, vitals as above Neck: trachea midline, no thyromegaly Respiratory: normal respiratory effort, lungs clear to auscultation Cardiovascular: RRR, no murmur, no edema Gastrointestinal (Abdomen): normal bowel sounds, soft, nontender, no hepatosplenomegaly Musculoskeletal: Extremities: extremities normal to inspection Skin: no rashes, warm and dry Lymphatic: no cervical lymphadenopathy Results & Data Results & Data ([facility]) Vital Signs (Past 12 Hours) Vital Signs Temp Pulse Resp BP Pulse Ox 03/21/22 06:00 36.4 C L 03/21/22 04:00 46 L 15 100 03/21/22 04:00 141/80 H 03/21/22 03:45 50 L 18 100 03/21/22 03:30 50 L 15 99 03/21/22 03:15 51 L 17 100 03/21/22 03:00 49 L 14 99 03/21/22 03:00 129/73 03/21/22 02:45 51 L 14 99 03/21/22 02:30 48 L 32 H 99 03/21/22 02:15 53 L 15 98 03/21/22 02:00 50 L 17 98 03/21/22 02:00 125/73 03/21/22 01:45 51 L 21 96 03/21/22 01:30 50 L 25 H 98 03/21/22 01:15 49 L 15 98 03/21/22 01:00 52 L 22 98 03/21/22 01:00 114/69 03/21/22 00:45 51 L 16 99 03/21/22 00:30 53 L 26 H 96 03/21/22 00:15 53 L 16 98 03/21/22 00:00 54 L 16 98 03/21/22 00:00 137/73 03/20/22 23:45 57 L 22 97 03/20/22 23:30 56 L 16 97 03/20/22 23:15 55 L 14 98 03/20/22 23:00 55 L 15 100 03/20/22 23:00 130/81 03/21/22 04:00 47 L 150/74 H 03/21/22 00:00 54 L 135/68 03/20/22 22:45 54 L 15 100 03/20/22 22:30 58 L 17 99 03/20/22 22:15 58 L 20 99 03/20/22 22:00 63 18 100 03/20/22 22:00 143/89 H 03/20/22 21:45 71 18 100 03/20/22 21:30 58 L 20 99 03/20/22 21:15 61 23 99 03/20/22 22:51 37 C Critical Care Results & Data Vital Signs (Past 12 Hours) Vital Signs Temp Pulse Resp BP Pulse Ox 03/21/22 06:00 36.4 C L 03/21/22 04:00 46 L 15 100 03/21/22 04:00 141/80 H 03/21/22 03:45 50 L 18 100 03/21/22 03:30 50 L 15 99 03/21/22 03:15 51 L 17 100 03/21/22 03:00 49 L 14 99 03/21/22 03:00 129/73 03/21/22 02:45 51 L 14 99 03/21/22 02:30 48 L 32 H 99 03/21/22 02:15 53 L 15 98 03/21/22 02:00 50 L 17 98 03/21/22 02:00 125/73 03/21/22 01:45 51 L 21 96 03/21/22 01:30 50 L 25 H 98 03/21/22 01:15 49 L 15 98 03/21/22 01:00 52 L 22 98 03/21/22 01:00 114/69 03/21/22 00:45 51 L 16 99 03/21/22 00:30 53 L 26 H 96 03/21/22 00:15 53 L 16 98 03/21/22 00:00 54 L 16 98 03/21/22 00:00 137/73 03/20/22 23:45 57 L 22 97 03/20/22 23:30 56 L 16 97 03/20/22 23:15 55 L 14 98 03/20/22 23:00 55 L 15 100 03/20/22 23:00 130/81 03/21/22 04:00 47 L 150/74 H 03/21/22 00:00 54 L 135/68 03/20/22 22:45 54 L 15 100 03/20/22 22:30 58 L 17 99 03/20/22 22:15 58 L 20 99 03/20/22 22:00 63 18 100 03/20/22 22:00 143/89 H 03/20/22 21:45 71 18 100 03/20/22 21:30 58 L 20 99 03/20/22 21:15 61 23 99 03/20/22 22:51 37 C Lab & Micro Results (Past 24 Hours) RBC 3.61 M/uL (4.63-6.08) L 03/21/22 WBC 9.04 K/ul (4.8-10.8) 03/21/22 Hgb 11.3 g/dl (14.0-18.0) L 03/21/22 Hct 33.6 % (40.1-51.0) L 03/21/22 MCV 93.1 fL (80.0-100.0) 03/21/22 MCH 31.3 pg (25.0-34.0) 03/21/22 MCHC 33.6 g/dL (32.0-36.0) 03/21/22 RDW Standard Deviation 50.7 fL (36.4-46.3) H 03/21/22 RDW Coefficient of Variation 15.0 % (11.5-14.5) H 03/21/22 Plt Count 167 K/uL (130-400) 03/21/22 MPV 9.6 fL (9.4-12.4) 03/21/22 Neutrophils (%) (Auto) 80.3 % 03/21/22 Lymphocytes (%) (Auto) 11.5 % 03/21/22 Monocytes # (Auto) 0.71 K/uL (0.24-0.82) 03/21/22 Eosinophils # (Auto) 0.00 K/uL (0-0.50) 03/21/22 Immature Granulocyte % (Auto) 0.2 % 03/21/22 Neutrophils # (Auto) 7.26 K/uL (1.4-6.5) H 03/21/22 Lymphocytes # (Auto) 1.04 K/uL (1.2-3.4) L 03/21/22 Monocytes # (Auto) 0.71 K/uL (0.24-0.82) 03/21/22 Eosinophils # (Auto) 0.00 K/uL (0-0.50) 03/21/22 Basophils # (Auto) 0.01 K/uL (0-0.2) 03/21/22 Immature Granulocyte # (Auto) 0.02 K/uL (0.00-0.02) 2 Na 138 mmol/L (136-145) 03/21/22 K 3.5 mmol/L (3.5-5.1) 03/21/22 Cl 106 mmol/L (98-107) 03/21/22 CO2 25 mmol/L (21-32) 03/21/22 Anion Gap 7 (3-11) 03/21/22 BUN 17 mg/dl (6-23) 03/21/22 Creatinine 0.88 mg/dl (0.6-1.4) 03/21/22 Estimated GFR ( Amer) 94.7 ml/min 03/21/22 Estimated GFR (Non-Af Amer) 81.7 ml/min 03/21/22 BUN/Creatinine Ratio 19.3 (10-20) 03/21/22 Glu 110 mg/dl (70-99(Fasting)) H 03/21/22 Ca 8.1 mg/dl (8.5-10.1) L 03/21/22 Calcium Level 8.1 mg/dl (8.5-10.1) L 03/21/22 04:30 I & O Totals 24 Hours 03/20/22 03/21/22 03/22/22 06:59 06:59 06:59 Intake Total 2372.917 / 2372.917 120 / 120 Output Total 2195 / 2195 350 / 350 Balance 177.917 / 177.917 -230 / -230 Cumulative 03/12/22 09:09 thru 03/21/22 08:00 Intake Total 2492.917 Output Total 2545 Balance -52.083 RT Ventilator Mngmt (Last Documented) Ventilator Ordered Settings Respiratory Rate 15 03/21/22 04:00 Ventilator - PT Measurements Respiratory Rate 15 Coding Level of Care Code 45210 Subseq Hosp Care Lvl 2 Diagnoses Obstructive sleep apnea G47.33 Abdominal aortic aneurysm I71.4 Hypertension I10
--- NOTE | 2022-03-21 12:41 | Surgery Progress Note ---
Date of Service March 21, 2022 Assessment & Plan (1) Abdominal aortic aneurysm: Plan: Doing well post op D/C today Admission and Anticipated Discharge Date Admission Date: March 20, 2022 Subjective Only complaint is mild tenderness of the groins Physical Exam Constitutional: WD/WN, vitals as above Respiratory: normal respiratory effort; no respiratory distress Cardiovascular: Rate/Rhythm: regular rate and regular rhythm Vessels: posterior tibial pulses present and dorsalis pedis pulses present Extremities: normal capillary refill Gastrointestinal (Abdomen): Inspection/Auscultation: abdomen normal to inspection; abdomen not distended Percussion/Palpation: abdomen soft; abdomen nontender Skin: + incision (puncture sites without hematoma or bleeding) Psychiatric: Orientation: alert and oriented x 3 Results & Data ([facility]) Vital Signs (Past 12 Hours) Vital Signs Temp Pulse Resp BP Pulse Ox O2 Del Method 03/21/22 11:00 56 L 17 100 03/21/22 10:00 57 L 18 144/88 H 97 03/21/22 09:00 57 L 15 97 03/21/22 09:00 156/94 H 03/21/22 08:48 160/93 H 03/21/22 08:48 59 L 22 97 03/21/22 08:00 56 L 17 97 03/21/22 08:00 133/90 03/21/22 07:00 49 L 14 99 03/21/22 07:00 134/79 03/21/22 06:00 49 L 16 94 03/21/22 06:00 146/76 H 03/21/22 08:00 57 L 03/21/22 10:00 36.2 C L 03/21/22 08:00 Room Air 03/21/22 08:00 55 L 141/80 H 03/21/22 06:00 36.4 C L 03/21/22 04:00 46 L 15 100 03/21/22 04:00 141/80 H 03/21/22 03:45 50 L 18 100 03/21/22 03:30 50 L 15 99 03/21/22 03:15 51 L 17 100 03/21/22 03:00 49 L 14 99 03/21/22 03:00 129/73 03/21/22 02:45 51 L 14 99 03/21/22 02:30 48 L 32 H 99 03/21/22 02:15 53 L 15 98 03/21/22 02:00 50 L 17 98 03/21/22 02:00 125/73 03/21/22 01:45 51 L 21 96 03/21/22 01:30 50 L 25 H 98 03/21/22 01:15 49 L 15 98 03/21/22 01:00 52 L 22 98 03/21/22 01:00 114/69 03/21/22 00:45 51 L 16 99 03/21/22 04:00 47 L 150/74 H
--- NOTE | 2022-03-22 07:41 | Discharge Summary ---
Date of Service March 22, 2022 Admission HPI Per Admitting Provider Mr. Suarez is an elderly male who presents to Dr. Robertson's vascular surgery clinic today as a new patient in consultation for an incidental finding of an abdominal aortic aneurysm on recent imaging. Patient states that he has been suffering from intermittent left lower quadrant abdominal pain, and the site of his previous partial colectomy, and sought medical attention. He underwent a CT evaluation which demonstrated an infrarenal abdominal aortic aneurysm. He states he was never told that he had 1 prior to this, although the radiologist did have a comparison imaging of a smaller AAA in 2013 at 3 cm. Patient states overall he is feeling well. He denies headache, fever, chest pain, shortness of breath, abdominal pain, nausea, vomiting, rest pain, claudication, nonhealing wounds or ulcers, other concerns. 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 Admission Exam Per Admitting Provider Constitutional: In general patient is a thin but healthy appearing well- nourished well-developed elderly male no distress. He is alert and oriented without any focal deficits. His head is normocephalic atraumatic. His trachea is midline. His carotids do not demonstrate a bruit. His heart is regular, his lungs are clear throughout. His abdomen is soft and nontender with an easily palpable left-sided pulsatile mass measuring about 5 cm in diameter. He has easily palpable femoral pulses. His radial and brachial pulses are +3. His lower extremity distal pulses are +2. He has brisk capillary refill and no sign of distal ischemia. There is no edema. Principal Diagnosis 1. s/p PEVAR 2. AAA Discharge Exam Constitutional WD/WN, vitals as above Respiratory normal respiratory effort; no respiratory distress Cardiovascular Rate/Rhythm: regular rate and regular rhythm Vessels: posterior tibial pulses present and dorsalis pedis pulses present Extremities: normal capillary refill Gastrointestinal (Abdomen) Inspection/Auscultation: abdomen normal to inspection; abdomen not distended Percussion/Palpation: abdomen soft; abdomen nontender Skin + incision (puncture sites without hematoma or bleeding) Psychiatric Orientation: alert and oriented x 3 Discharge Data Allergies Allergy/AdvReac Type Severity Reaction Status Date / Time Morpholine Analogues Allergy Severe Difficulty Verified 03/20/22 06:16 Breathing ciprofloxacin [From Cipro] AdvReac Intermediate Vomiting Verified 03/20/22 06:16 bee sting Allergy Severe Anaphylaxis Uncoded 03/20/22 06:16 Consultations 03/20/22 10:59 Consult Drug Safety Data Management Specialist Routine Procedures Performed Operation Date: 03/20/22 08:00 Actual Procedures p Percutaneous Endovascular Aortic Aneurysm Repair, Ultrasound Localization of Bilateral Femoral Arteries, Left Iliac Extension, Mechanical Closure of Bilateral Femoral Arteries(Bilateral) - Juwan Robertson MD Ordered Studies 03/20/22 07:22 EV aorto bi iliac repair Routine US EV guide vascular access Routine Hospital Course (1) Abdominal aortic aneurysm: Doing well post op day #1. D/C home today Total Time Total Time Spent Total Time Spent (In Minutes): 0 . Discharge Plan Discharge Items Patient Disposition: Home - Self-Care Reason For Visit: Abdominal Aortic Aneurysm Discharge Diagnosis: Abdominal aortic aneurysm Activity: Per Instructions section Non-emergency contact: Surgeon Call non-emergency contact if: your temperature is above 101.5, your wound has increased redness, your wound has increased drainage and your wound pain has increased Follow-up/Referrals: Beck Pugh MD [Primary Care Provider] - Diet: Heart Healthy Addtl Attending Provider Instructions: SPECIAL CARE INSTRUCTIONS: Medications: * Continue to take your medications as directed. Incision/Puncture Site Care: * You will have an incision or puncture in each of your groins. Liquid glue will be used to seal your incisions/puncture site. This will lift off as the incisions/puncture sites heal. * If Liquid glue is not used, there will be small dressings covering your incisions. After you get home, you may remove the dressings and shower - allowing the warm soapy water to run over it. * Be sure to dry the sites well and keep them dry. * DO NOT SOAK IN A TUB/POOL/etc. UNTIL ALL SURGICAL SITES ARE HEALED. DO NOT REMOVE THE GLUE UNTIL THE INCISIONS HEAL. Restrictions: * Limit yourself to roll wrapper activity for the first week. * You may walk and go up and down steps. * Avoid excessive bending or movement at the level of the incisions or punctures. Risks and Possible Complications: * Infection/Drainage/Bleeding - Drainage or bleeding from the incisions/puncture site should be minimal. If you have excessive bleeding or drainage, call our office ([phone]) right away. * Pain/Numbness - You may experience some mild pain or soreness at your incision sites. You may also have some numbness around the incisions or into the insides of your thighs. Bruising is normal and should resolve within 2 weeks. * Changes in Appetite or Bowel Habits - Mostly related to anesthesia and pain medication, some patients have reported decreased appetite and/or problems with constipation. These symptoms usually improve over a few weeks. Remembering to take an [id number] stool softener, as directed, will help you to avoid constipation. Call our office and seek emergent treatment if you develop: * Fever or chills * Have a temperature greater than 101 degrees F * Any redness or purulent drainage from your incisions or punctures * Severe abdominal, chest or back pain SKIN IRRITATION: * You may experience some redness and/or swelling in the area where radiation was administered. If any skin irritation occurs, please contact your family physician. You will be receiving a call from the Vascular Surgery Nurse after you are discharged. FOLLOW UP VISIT: It is important for you to keep your follow up appointments with your medical provider. Keep any scheduled doctor appointments. Call [phone] to schedule a follow up appointment if one not already scheduled. Pending Studies at Discharge: No Stand-Alone Forms: [facility], Smoking Cessation Medications and DC Order Prescriptions: New oxycodone-acetaminophen [Percocet] 5-325 mg tablet 1 tab PO Q8H PRN (Reason: pain) Qty: 7 0RF Continued losartan 50 mg tablet 50 mg PO QAM Qty: 30 0RF multivitamin Tablet 1 tab PO QAM levothyroxine 125 mcg tablet 125 mcg PO QAM clobetasol 0.05 % cream 1 applic TOPICAL DAILY PRN (Reason: Rash) Rx Instructions: "for psoriasis" calcipotriene 0.005 % cream 1 applic TOPICAL DAILY PRN (Reason: Rash) Rx Instructions: "for psoriasis" Discharge Orders: Discharge Order (Routine); Ordered 03/21/22 Ordered By: Juwan Robertson Admission Data Admit Date/Time: 03/20/22 07:28 Attending Provider: Juwan Robertson Admit Provider: Juwan Robertson Primary Care Provider: Solic,Black. Other Providers: Bairon Murguia ; Demond Brooke ; Sunny Kirkland ; Ag Celaya ; Tito Sanchez ; Sherman Abrams ; Christos Lockhart ; Andrew Boyce ; Kimberley Deleon Other Interventions: Discharge Summary Assessment (RN) Last Done: 03/21/22 12:44
== END 2022-03-21 13:15 | disposition home or self-care (01) | DRG 269 ==
LOC: ASU 05:57 → 1E 07:28